=== PATIENT | female | born 1940 | race Caucasian/White ===

== ENCOUNTER 2017-06-21 14:04 | Emergency (ER) | payer MEDICARE, BC ==
[~2017-06-21] VITALS: Ht 160 cm; Wt 97.1 kg
[2017-06-21] MEDS ORDERED: AMILORIDE HCL-1 EACH PO (14:23)
[2017-06-21] MEDS ORDERED: METFORMIN HCL500 MG PO (14:23)
[2017-06-21] MEDS ORDERED: ASA81BEC PO (14:23)
[2017-06-21] MEDS ORDERED: KLOR-CON 1010 MEQ PO (14:23)
[2017-06-21] MEDS ORDERED: DOXYCYCLINE 10100 MG PO (14:58)
[2017-06-21 15:09] VITALS: BP 128/76
== END 2017-06-21 15:10 | disposition home or self-care (01) ==
LOC: M.ERS 14:04
DX: L03.119 Cellulitis of unspecified part of limb (principal); Z87.442 Personal history of urinary calculi; Z96.659 Presence of unspecified artificial knee joint; Z88.2 Allergy status to sulfonamides